=== PATIENT | female | born 1995 | race Asian ===

== ENCOUNTER 2016-04-29 20:13 | Emergency (ER) | payer OTHER ==
[2016-04-29 20:53] LABS: URINE BILIRUBIN NEGATIVE (NEGATIVE); URINE BLOOD NEGATIVE (NEGATIVE); URINE GLUCOSE (UA) NEGATIVE (NEGATIVE); URINE LEUKOCYTE ESTERASE NEGATIVE (NEGATIVE); URINE NITRITE NEGATIVE (NEGATIVE); URINE PROTEIN NEGATIVE (NEGATIVE); URINE UROBILINOGEN NORMAL (0-1 mg/dl)
[2016-04-29 20:57] LABS: URINE APPEARANCE CLEAR; URINE COLOR YELLOW
--- NOTE | 2016-04-30 08:07 | US ---
SHV ^15wk , VB From vaginal discharge since Tuesday. Positive . OB FOLLOW UP Comparisons: None Findings: Multiple nicole-scale, color flow and duplex doppler images during 2nd trimester ultrasound are obtained. GESTATION: Single POSITION: Transverse PLACENTA: Location: Anterior Previa: No Abruption: No Grade: 0 AMNIO. FLUID VOLUME: NORA = subjectively normal MEASUREMENTS: BPD 2.9 cm 15-2 wks-days HC 10.8 cm 15-1 wks-days AC 8.8 cm 15-0 wks-days FL 1.6 cm 14-4 wks-days Mean Gestational Age: 15 weeks and 0 days Mean Gestational Weight: 109 g +/- 16 g Estimated date of delivery: 10/21/2016 CI ratio: 83.9 Cervix: Normal, 4.5 cm. Heart Tones: 153 bpm Trunk and limb motion is present. survey is deferred given the early gestational age. Note is made of an anechoic region along the lower uterine segment, to the right of the placenta measuring 7.7 x 6.2 x 1.2 cm. Impression: Single intrauterine gestation with heart tones of 153 bpm. Anechoic region adjacent to the placenta along the lower uterine segment region. Findings could relate to placental cyst or less likely venous clark. No evidence of hemorrhage is identified otherwise. Patient is to return at the appropriate time for standard second trimester survey as an outpatient. Preliminary report was provided by Nikita at approximately 2248 hours on 04/29/2016.
== END 2016-04-29 23:39 | disposition home or self-care (01) ==
LOC: ED 20:13
DX: O03.9 Complete or unspecified spontaneous abortion without complication (principal); Z3A.14 14 weeks gestation of pregnancy